=== PATIENT | male | born 1965 | race Caucasian/White ===

== ENCOUNTER 2016-11-19 19:24 | Emergency (ER) | payer OTHER ==
[~2016-11-19 19:24] MED LIST: EXCEDRIN MIGRAI1 TA1 PO; NEURONTIN600 MG PO; ZOLOFT PO
[2016-11-19] MEDS ORDERED: SEROQUEL (19:49)
[2016-11-19] MEDS ORDERED: RISPERIDONE (19:49)
== END 2016-11-19 20:22 | disposition home or self-care (01) ==
LOC: SED 19:24
DX: L02.416 Cutaneous abscess of left lower limb (principal); L03.116 Cellulitis of left lower limb; F17.210 Nicotine dependence, cigarettes, uncomplicated
CPT/HCPCS: 99283